=== PATIENT | female | born 1990 | race Caucasian/White ===

== ENCOUNTER 2016-10-06 06:06 | Day surgery (SDC) | payer SELFPAY ==
--- NOTE | ~2016-10-06 | OP ---
Record Of Operation [facility] [address] [place]. 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 POSTOPERATIVE DIAGNOSIS: Right type 2 branchial cleft cyst. PROCEDURE: Excision of right type 2 branchial cleft cyst. SURGEON: Kaylie Abreu M.D. ANESTHESIA: General. COMPLICATIONS: None. COUNTS: All counts correct following the procedure. ESTIMATED BLOOD LOSS: 10 mL. PREOPERATIVE INFORMED CONSENT: We discussed risks and benefits of the surgery including, but not limited to bleeding, infection, possible cranial nerve injury resulting in temporary or permanent deficits, possible recurrence of the cyst and consent is on the chart. PROCEDURE IN DETAIL: The patient was brought to the operating suite and placed on the operative table in supine position. General endotracheal anesthesia was initiated without incident. The patient's right neck was cleaned and prepped in the usual sterile fashion. Following this, a transverse incision was marked out over the lesion in question in the right neck. It was injected with 1% lidocaine with 1:100,000 epinephrine for hemostasis. Following this, a 15 blade scalpel was used to make incision down to the underlying subcutaneous tissues, sharp dissection was carried out down through the platysmal layer and then dissecting over the anterior aspect of the sternocleidomastoid muscle. The cyst was identified and careful dissection along the capsule of the cyst was performed dividing the feeding vessels using bipolar cautery as well as the Harmonic Scalpel. The cyst was followed in the carotid sheath up towards the oropharynx where the neck of the cyst was truncated, its truncated using a hemostat. The cyst was then divided and the cyst was removed en bloc and sent for permanent section. The base of the cyst was then oversewn using 2-0 silk suture ligature. Wound was copiously irrigated with sterile saline. Then, a #10 round SHAN drain was brought out through the lower neck incision and sutured to the skin using 2-0 silk. The wound was closed in layers using 3-0 Vicryl and 5-0 plain gut suture. The patient was awakened from anesthesia and taken to the recovery room in stable condition. HEYDI/DANIEL Kaylie Abreu, Record Of Operation [address] [address] NAME: ION TRINIDAD : 89 STATUS : [facility] PAT#: [id number] AGE: 26 ADM/REG DATE : 10/06/16 MR#: [id number] REPORT SERV DATE: 12/27/16 DICTATED BY: KAYLIE ABREU DATE: 12/27/16 REPORT STATUS : Draft TRANSCRIBED BY: DANIEL DATE: 12/27/16 Danny / [id number] CC: Kaylie Abreu M.D.
[~2016-10-06 06:06] MED LIST: CONGESTION MED; T PO
== END 2016-10-06 23:59 | disposition home or self-care (01) ==
LOC: MSC 06:06
PROVIDERS: Otolaryngology
PROC: 0CBM0ZZ Excision of Pharynx, Open Approach (ICD-10-PCS; principal; 2016-10-06 07:30)
DX: Q18.0 Sinus, fistula and cyst of branchial cleft (principal); Z72.0 Tobacco use
CPT/HCPCS: 84703; 88305; A9270-GY; J0690; J2250; J2270; J2405; J3010